=== PATIENT | male | born 1980 | race Caucasian/White ===

== ENCOUNTER 2021-07-16 21:17 | Inpatient (IN) ==
[2021-07-16] MEDS ORDERED: THIAMINE INJ 100 MG, FOLIC ACID INJ 1 MG, MAGNESIUM SULF INJ 2 GM, MULTIVITAMIN INJ 10 ... IV ONE (21:49)
[2021-07-16] MEDS ORDERED: LORazepam 2 MG/1 ML VIAL IV STA ×2 (21:49→22:04)
[2021-07-16] MEDS ORDERED: DIAZEPAM 10 MG/2 ML SYRINGE IV STA ×6 (22:30→23:25)
[2021-07-16] MEDS ORDERED: THIAMINE INJ 100 MG, FOLIC ACID INJ 1 MG, MAGNESIUM SULF INJ 2 GM in SODIUM CHLORIDE 0.... IV ONE (22:30)
[2021-07-16] MEDS ORDERED: DIAZEPAM 10 MG/2 ML SYRINGE ONE (22:31)
[2021-07-16] MEDS ORDERED: HALOPERIDOL 5 MG/ML AMP ONE (23:17)
[2021-07-16 23:18] LABS: Basophils % 0.2 % (0.0-0.8); Hematocrit 41.4 VOL% (42.0-52.0); Immature Granulocytes % 0.6 %; Immature Granulocytes Absolute 0.06 #; Lymphocytes # 1.1 10*3/uL (1.4-4.0); Lymphocytes % 11.1 % (21.2-54.2); Mean Corpuscular HGB Conc 33.8 GM/DL (32-36); Mean Corpuscular Volume 81.5 FL (87-102); Mean Platelet Volume 12.3 FL (9.6-12.0); Neutrophils % 78.1 % (38.7-73.9); Platelet Count 73 T/CUMM (130-400); Red Blood Count 5.08 MC/CUMM (3.8-5.5); Red Cell Distribution Width 14.5 % (9.3-17.3)
[2021-07-16] MEDS ORDERED: HALOPERIDOL 5 MG/ML AMP IV STA ×2 (23:18→23:56)
[2021-07-16] MEDS ORDERED: FOSPHENYTOIN 1,000 MG.PE in SODIUM CHLORIDE 0.9% 250 ML IV STA ×2 (23:21→23:25)
[2021-07-16 23:27] LABS: PT Patient Result 11.5 SECS (10.5-12.0); Partial Thromboplastin Time 25.2 SECS (23.8-32.1)
[2021-07-16] MEDS ORDERED: PHENYTOIN INJ 1,000 MG in SODIUM CHLORIDE 0.9% 100 ML IV STA (23:32)
[2021-07-16 23:37] LABS: Albumin 4.1 G/DL (3.4-5.0); Bilirubin,Total 2.9 MG/DL (0.20-1.00); Calcium 9.4 MG/DL (8.5-10.1); Osmolality,Calculated 260.9 MOS/KG (273-304); Potassium 2.9 MMOL/L (3.5-5.1); Total Protein 7.8 G/DL (6.4-8.2)
[2021-07-17] MEDS ORDERED: PHENOBARBITAL IV STA (00:04)
[2021-07-17] MEDS ORDERED: SODIUM CHLORIDE 0.9% IV STA (00:04)
[2021-07-17] MEDS ORDERED: DIAZEPAM 10 MG/2 ML SYRINGE IV STA (00:14)
[2021-07-17] MEDS ORDERED: ETOMIDATE 20 MG/10 ML VIAL IV ONE (00:51)
[2021-07-17] MEDS ORDERED: VECURONIUM 10 MG VIAL IV STA (01:01)
[2021-07-17] MEDS ORDERED: ETOMIDATE 20 MG/10 ML VIAL IV STA (01:01)
[2021-07-17] MEDS ORDERED: MIDAZOLAM 10 MG/2 ML VIAL ONE (01:45)
[2021-07-17] MEDS ORDERED: MIDAZOLAM 100 MG in SODIUM CHLORIDE 0.9% 80 ML IV PRN (01:45)
[2021-07-17] MEDS ORDERED: MIDAZOLAM 10 MG/2 ML VIAL IV STA (01:45)
[2021-07-17] MEDS ORDERED: ALBUTEROL 2.5 MG/3 ML NEB RESP TX PRN (02:01)
[2021-07-17] MEDS ORDERED: ONDANSETRON 4 MG/2 ML VIAL IV PRN (02:01)
[2021-07-17] MEDS ORDERED: POTASSIUM CHLORIDE 20 MEQ TABLET PO PRN (02:08)
[2021-07-17] MEDS ORDERED: MAGNESIUM SULF RIDER 4 GM/100 ML PREMIX IV PRN (02:08)
[2021-07-17] MEDS ORDERED: MAGNESIUM SULF RIDER 2 GM/50 ML PREMIX IV PRN (02:08)
[2021-07-17] MEDS ORDERED: FAMOTIDINE 20 MG/2 ML VIAL IV SCH (02:30)
[2021-07-17] MEDS ORDERED: SODIUM CHLORIDE 0.9% 1,000 ML IV SCH (02:30)
[2021-07-17 04:38] VITALS: BP 171/137
[2021-07-17] MEDS ORDERED: FOLIC ACID INJ 1 MG in SYRINGE 1 EACH IV SCH (21:00)
[2021-07-17] MEDS ORDERED: THIAMINE INJ 100 MG, FOLIC ACID INJ 1 MG, MULTIVITAMIN INJ 10 ML in SODIUM CHLORIDE 0.9... IV SCH (21:00)
[2021-07-17] MEDS ORDERED: THIAMINE 200 MG/2 ML VIAL IV SCH (21:00)
== END 2021-07-17 04:32 | disposition hospice, home (50) | DRG 86 ==
LOC: N.ED 21:17 → N.EDINP 07-17 00:21 → SUATTDRO 07-17 00:21 → N.EDINP 07-17 04:32
PROVIDERS: ADMIT Internal Medicine; ATTEND Internal Medicine